=== PATIENT | male | born 1980 | race Two or more races ===

== ENCOUNTER 2017-03-22 01:04 | Emergency (ER) | payer SELFPAY ==
[~2017-03-22] VITALS: Ht 172.7 cm; Wt 84.4 kg
[2017-03-22 01:05] VITALS: BP 151/89
== END 2017-03-22 03:14 | disposition left against medical advice (07) ==
LOC: EME 01:04
DX: F10.129 Alcohol abuse with intoxication, unspecified (principal); Z53.20 Procedure and treatment not carried out because of patient's decision for unspecified reasons
CPT/HCPCS: 99281; 99283